=== PATIENT | male | born 1980 | race Caucasian/White ===

== ENCOUNTER 2018-04-04 16:06 | Emergency (ER) | payer OTHER ==
[~2018-04-04] VITALS: Ht 177.8 cm; Wt 98.4 kg
[~2018-04-04 16:06] MED LIST: FLEXERIL PO; HYDROCODONE-APA1 TA1 PO; IBUPROFEN 800800 MG PO; NOHOMEMEDICATIONS; NORCO 5-325 TA1 EACH PO; ULTRAM 50MG TAB50 MG PO; VALIUM2 MG PO; XANAX 0.25 MG0.25 MG PO
[2018-04-04] MEDS ORDERED: HYDROXYZINE HCL25 M1 PO (17:00)
[2018-04-04] MEDS ORDERED: FLEXERIL PO ×2 (17:00→17:39)
[2018-04-04 17:16] LABS: ABSOLUTE BASOPHILS 0.1 thou/uL (0.0-0.2); ABSOLUTE EOSINOPHILS 0.4 thou/uL (0.0-0.7); ABSOLUTE LYMPHOCYTES 2.6 thou/uL (0.8-5.3); ABSOLUTE MONOCYTES 0.6 thou/uL (0.0-1.2); BASOPHILS 1.1 %; EOSINOPHILS 6.1 %; HEMATOCRIT 41.4 % (42.0-52.0); HEMOGLOBIN 14.3 gm/dL (14.0-18.0); LYMPHOCYTES 38.6 %; MCH 29.9 pg (26.0-34.0); MCHC 34.7 g/dL (28.0-37.0); MCV 86.4 fL (80.0-100.0); MONOCYTES 9.2 %; MPV 8.5 fl. (7.2-11.1); NUCLEATED RBCS 0 /100WBC; PLATELET COUNT* 279 thou/uL (150-400); RBC 4.79 mil/uL (4.50-6.00); RDW-CV 12.4 % (10.5-14.5); WBC 6.7 thou/uL (4.0-11.0)
[2018-04-04 17:30] LABS: ANION GAP 8 mmol/L (7-16); BUN 9 mg/dL (7-18); CALCIUM 7.7 mg/dL (8.5-10.1); CHLORIDE 102 mmol/L (98-107); CO2 28 mmol/L (21-32); CREATININE 0.9 mg/dL (0.6-1.3); GLUCOSE 80 mg/dL (70-99); POTASSIUM 3.2 mmol/L (3.5-5.1); SODIUM 138 mmol/L (136-145)
[2018-04-04 17:37] LABS: ALBUMIN 3.1 g/dL (3.4-5.0); ALKALINE PHOSPHATASE 67 U/L (46-116); SGOT 21 U/L (15-37); SGPT 37 U/L (30-65); TOTAL BILIRUBIN 0.4 mg/dL (<0.1-1.0); TOTAL PROTEIN 6.7 g/dL (6.4-8.2); TROPONIN-I LEVEL <0.06 ng/mL (<0.06)
[2018-04-04] MEDS ORDERED: ATIVAN1 MG PO (17:38)
[2018-04-04 17:54] VITALS: BP 131/81
--- NOTE | 2018-04-05 16:25 | EKG ---
[place] [address] ELECTROCARDIOGRAM REPORT Name: NOLBERTO JAMES Room: [facility]#: [id number] Admission: 04/04/18 Attend Phys: Discharge: 04/04/18 Date of : 76 Report #: [id number] THIS REPORT FOR: //name// [facility] ED Test Date: 2018-04-04 Test Time: 16:27:18 Pat Name: NOLBERTO JAMES Department: Room: Gender: Construction Consultant: : [id number] Requested By: Jaime Singer Order Number: [id number] MD: Preston Mendoza Measurements Intervals [place] Rate: 74 P: 7 OK: 131 QRS: -44 QRSD: 102 T: 32 QT: 395 QTc: 439 Interpretive Statements Sinus rhythm Probable left atrial enlargement Abnormal R-wave progression, late transition Inferior infarct, old No previous ECG available for comparison Electronically Signed On 04-05-2018 16:25:34 [employer] by Preston Mendoza [email or web address] <ELECTRONICALLY SIGNED> By: Preston Mendoza MD, [facility] 04/05/18 1625 1627 Preston Mendoza MD, [facility] /EPI
== END 2018-04-04 17:55 | disposition home or self-care (01) ==
LOC: M.ERS 16:06
PROVIDERS: Emergency Medicine Emergency Medical Services
DX: F41.9 Anxiety disorder, unspecified (principal); M54.5 Low back pain; I10 Essential (primary) hypertension; F17.210 Nicotine dependence, cigarettes, uncomplicated; Z88.0 Allergy status to penicillin